=== PATIENT | male | born 1955 | race Hispanic/Latino ===

== ENCOUNTER → 2019-06-07 | Outpatient (CLI) | payer OTHER | END | disposition home or self-care (01) | LOC: OIH 11:24 | PROVIDERS: ATTEND Family Medicine | DX: M17.12 Unilateral primary osteoarthritis, left knee (principal); M25.412 Effusion, left shoulder; M25.712 Osteophyte, left shoulder; M19.042 Primary osteoarthritis, left hand; M25.742 Osteophyte, left hand; M19.012 Primary osteoarthritis, left shoulder | CPT/HCPCS: 73030; 73120; 73560 ==

== ENCOUNTER → 2021-11-14 | Outpatient (CLI) | payer OTHER | END | disposition home or self-care (01) | LOC: RAH 14:08 | PROVIDERS: ATTEND Internal Medicine | DX: I10 Essential (primary) hypertension (principal) | CPT/HCPCS: 71046 ==

== ENCOUNTER → 2023-06-09 | Outpatient (CLI) | payer OTHER | END | disposition home or self-care (01) | LOC: LAB 10:56 | PROVIDERS: ATTEND Internal Medicine | DX: Z01.818 Encounter for other preprocedural examination (principal); I10 Essential (primary) hypertension | CPT/HCPCS: 71046 ==

== ENCOUNTER 2023-06-22 05:00 | Observation (INO) | payer OTHER ==
[2023-06-17 11:41] VITALS: BP 140/76; PULSE 69; RESP 20
[2023-06-22] VITALS (31 sets, daily range): BP systolic 127–178; BP diastolic 54–81; PULSE 65–83; RESP 14–18
[~2023-06-22] VITALS: Ht 157.5 cm; Wt 118.8 kg
[~2023-06-22 05:00] MED LIST: ALPR1TAB7 PO; AMLO-258 PO; CYAN-106 PO; GABA300C PO; HYDR-4068 PO; LISI40TA9 PO; TRAM50TA4 PO
[2023-06-22] MEDS: LACTATED RINGERS 1000ML 1,000 ML IV ONE (07:35)
[2023-06-22] MEDS: CEFAZOLIN SODIUM 2 GM VIAL ONE (07:35)
[2023-06-22] MEDS: FAMOTIDINE 20MG VIAL IV ONE (10:15)
[2023-06-22] MEDS: ACETAMINOPHEN 1,000 MG/100 ML VIAL IV ONE (10:15)
[2023-06-22] MEDS ORDERED: CEFAZOLIN SODIUM 1 GM VIAL ONE (10:23)
[2023-06-22] MEDS ORDERED: GENTAMICIN SULFATE 80 MG/2 ML VIAL ONE (10:23)
[2023-06-22] MEDS ORDERED: PROPOFOL 10 MG/ML 20ML VIAL IV ONE (11:36)
[2023-06-22] MEDS ORDERED: LIDOCAINE PF 100MG/5ML (2%) SYRINGE 5ML ONE (11:36)
[2023-06-22] MEDS ORDERED: ROCURONIUM BROMIDE 10MG/1ML 5ML VL ONE ×2 (11:36→12:02)
[2023-06-22] MEDS ORDERED: FENTANYL CITRATE PF 50 MCG/1 ML 2ML VIAL ONE (11:37)
[2023-06-22] MEDS ORDERED: KETAMINE 50MG/ML SYRINGE 50 MG/ML DISP.SYRIN ONE (11:41)
[2023-06-22] MEDS ORDERED: DEXAMETHASONE SOD PHOSPHATE 10MG/ML 1ML VIAL ONE (11:57)
[2023-06-22] MEDS ORDERED: ONDANSETRON 4MG INJ ONE (11:57)
[2023-06-22] MEDS: CEFAZOLIN SODIUM 2 GM VIAL IVPB ONE (12:10)
[2023-06-22] MEDS ORDERED: GLYCOPYRROLATE 0.2 MG/ML 5 ML VIAL ONE (12:14)
[2023-06-22] MEDS ORDERED: NEOSTIGMINE METHYLSULFATE 1MG/ML IV ONE (12:14)
[2023-06-22] MEDS ORDERED: PHENYLEPHRINE HCL 10 MG/ML 1ML VIAL IV ONE (12:26)
[2023-06-22] MEDS: 0.9%NACL 48.45 ML, ROPIVACAINE 0.5% 49.25ML, EPINEPH 0.5MG KETOROLAC 30MG,CLONIDINE 80MCG IV PRN (13:15)
[2023-06-22] MEDS: TRANEXAMIC ACID 1000MG/10ML TP ONE (13:30)
[2023-06-22] MEDS: ONDANSETRON 4MG INJ ONE (14:41)
[2023-06-22] MEDS: MEPERIDINE-PF 25 MG/ML SYG ONE ×2 (14:42→14:47)
[2023-06-22] MEDS: FENTANYL CITRATE PF 50 MCG/1 ML 2ML VIAL ONE (15:50)
[2023-06-22] MEDS: HYDROMORPH /0.9% NACL/PF PCA 50 ML IV PRN (15:52)
[2023-06-22] MEDS ORDERED: DIPHENOXYLATE HCL/ATROPINE 2.5/0.025 MG TAB PO PRN (22:00)
[2023-06-22] MEDS ORDERED: CEFAZOLIN SODIUM 1 GM VIAL IVPB SCH (22:00)
[2023-06-22] MEDS ORDERED: ACETAMINOPHEN 325 MG TAB PO SCH (22:00)
[2023-06-22] MEDS ORDERED: DiphenhydrAMINE HCL 50 MG/ML VIAL IM PRN (22:00)
[2023-06-22] MEDS ORDERED: BENZOCAINE/MENTH/CETYLPYRD CL 1 EACH LOZENGE MM PRN (22:00)
[2023-06-22] MEDS ORDERED: ACETAMINOPHEN WITH CODEINE 1 TAB TAB PO PRN (22:00)
[2023-06-22] MEDS ORDERED: MAG/ALUM/SIMETH 30 ML UDCUP PO PRN (22:00)
[2023-06-22] MEDS ORDERED: HYDROMORPH /0.9% NACL/PF PCA 50 ML IV PRN (22:00)
[2023-06-22] MEDS ORDERED: DIPHENHYDRAMINE HCL 25 MG CAPSULE PO SCH (22:00)
[2023-06-22] MEDS ORDERED: DIPHENHYDRAMINE HCL 25 MG CAPSULE PO PRN (22:00)
[2023-06-22] MEDS ORDERED: ACETAMINOPHEN 325 MG TAB PO PRN ×2 (22:00)
[2023-06-22] MEDS ORDERED: ONDANSETRON 4MG INJ IVP PRN (22:00)
[2023-06-22] MEDS ORDERED: CLONIDINE HCL 0.1 MG TABLET PO PRN (22:30)
[2023-06-22] MEDS: 0.9%NACL 1000ML 1,000 ML IV SCH (22:46)
[2023-06-22] MEDS: CEFAZOLIN SODIUM 3 GM in DEXTROSE 5%-WATER 100 ML IVPB SCH (23:33)
[2023-06-22] MEDS: TRAMADOL HCL 50 MG TABLET PO PRN (23:41)
[2023-06-23 00:10] VITALS: BP 158/69; PULSE 79; RESP 18
[2023-06-23 01:10] VITALS: BP 148/62; PULSE 75; RESP 18
[2023-06-23] MEDS: ACETAMINOPHEN WITH CODEINE 1 TAB TAB PO PRN (01:54)
[2023-06-23 03:52] LABS: HEMATOCRIT 40.7 % (42-54); MEAN CORPUSCULAR HEMOGLOBIN 30.9 pg (27.0-33.0); MEAN CORPUSCULAR HGB CONC 32.7 g/dL (32.0-36.0); MEAN CORPUSCULAR VOLUME 94.4 fL (79-99); RED BLOOD CELL COUNT(AUTO) 4.31 MIL/uL (4.50-6.20); RED CELL DISTRIBUTION WIDTH 13.5 % (11.0-15.5); WHITE BLOOD COUNT (AUTO) 11.9 K/uL (4.8-10.8)
[2023-06-23] MEDS: HYDROCODONE/ACETAMINOPHEN 5/325 MG TAB PO PRN (04:02)
[2023-06-23 04:03] LABS: CREATININE 1.2 mg/dL (0.5-1.3); POTASSIUM 4.9 mmol/L (3.5-5.1)
[2023-06-23 04:14] VITALS: BP 142/57; PULSE 68; RESP 18
[2023-06-23 08:00] VITALS: BP 168/70; PULSE 66; RESP 16
[2023-06-23] MEDS: ALPRAZOLAM 1 MG TAB PO SCH (08:52)
[2023-06-23] MEDS: RIVAROXABAN 10 MG TABLET PO SCH (08:52)
[2023-06-23] MEDS: AMLODIPINE 5 MG TAB PO SCH (08:53)
[2023-06-23] MEDS: GABAPENTIN 300 MG CAPSULE PO SCH (08:53)
[2023-06-23 09:00] VITALS: O2SAT 97
[2023-06-23 12:00] VITALS: BP 165/64; PULSE 59; RESP 18
[2023-06-23] MEDS ORDERED: LISINOPRIL 40 MG TABLET PO SCH (21:00)
== END 2023-06-23 16:56 | disposition home or self-care (01) ==
LOC: DAH 05:00 → DAHIP 05:01 → DAH 05:01 → 4CH 20:31
PROVIDERS: ADMIT Orthopaedic Surgery; ATTEND Orthopaedic Surgery
DX: M17.11 Unilateral primary osteoarthritis, right knee (principal); I10 Essential (primary) hypertension; E66.01 Morbid (severe) obesity due to excess calories; G47.33 Obstructive sleep apnea (adult) (pediatric); N40.0 Benign prostatic hyperplasia without lower urinary tract symptoms; G89.29 Other chronic pain; J44.9 Chronic obstructive pulmonary disease, unspecified; F11.20 Opioid dependence, uncomplicated; G62.9 Polyneuropathy, unspecified; M47.896 Other spondylosis, lumbar region; Z79.899 Other long term (current) drug therapy; Z68.42 Body mass index [BMI] 45.0-49.9, adult
CPT/HCPCS: 93005; 87641; 27447; 96365; 97161; 97116 ×3; 96376; 80048; 85027; 36415; 97530 ×2; A6260; G0378 ×17; A4510; A4663; J7120 ×2; A4215 ×2; A4649 ×4; J3490 ×7; J3010 ×2; J0690 ×5; J1100; J2001; J1580 ×2; J7060; J2704; J2405 ×2; J2710; J2175 ×2; J2371; A6223; C1763 ×2; C1776; A5120; A4223; A4222; A4221; A6450; J7030; 96375